=== PATIENT | female | born 2000 | race Caucasian/White ===

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

== ENCOUNTER → 2022-04-18 14:06 | Outpatient (CLI) | payer OTHER, SELFPAY ==
--- NOTE | ~2022-04-18 | XR_ITS ---
Lumbosacral Spine: AP and lateral views Clinical History: Pain Findings: The normal lordotic curve is maintained. The vertebral bodies and posterior elements are i ntact. The intervertebral disc spaces are preserved. The sacroiliac joints are normally outlined. Impression: No significant abnormality. Reviewed, dictated and finalized at location [] APY ADMINISTRATIVE ASSISTANT Impression: No significant abnormality.
--- NOTE | ~2022-04-18 | XR_ITS ---
AP and lateral views of the left femur Clinical History: Pain Findings: No acute fracture or dislocation is seen. Osseous alignment is anatomic. Visualized joint s paces are grossly preserved. Soft tissues are unremarkable. Impression: Unremarkable left femoral radiographs. Reviewed, dictated and finalized at location [] ER HAND Impression: Unremarkable left femoral radiographs.
== END ==
PROVIDERS: PCP Pediatrics; Visit Provider Pediatrics
DX: M54.50 Low back pain, unspecified (principal); M79.605 Pain in left leg
CPT/HCPCS: 72100; 73552

== ENCOUNTER 2022-10-27 14:27 | Emergency (ER) | payer OTHER, SELFPAY ==
[2022-10-27 15:00] VITALS: BP 113/70; PULSE 103; RESP 18; TEMP 36.3; O2SAT 100
--- NOTE | 2022-10-27 15:11 | ED.FEMALEGU ---
HPI - Female Genitourinary General Stated complaint: uti symptoms Time Seen by Provider: 10/27/22 15:12 Source: patient Mode of arrival: ambulatory Limitations: no limitations History of Present Illness HPI Narrative: Patient is a 22-year-old female that has not urinated in 20 hours. Patient states over the last 3 weeks she has had prolonged time starting stream but has never not been able to go. Patient had urine sample sent last week to rule out UTI. Urine was clean. Patient denies any low back pain or fever but is having pelvic pain and abdominal pain due to bladder pressure. MD elicited complaint: dysuria Related Data Home Medications Medication Instructions Recorded Confirmed atomoxetine 80 mg capsule 80 mg PO DAILY 10/27/22 10/27/22 escitalopram oxalate 20 mg tablet 20 mg PO DAILY 10/27/22 10/27/22 olanzapine 2.5 mg tablet 2.5 mg PO DAILY 10/27/22 10/27/22 spironolactone 100 mg tablet 100 mg PO DAILY 10/27/22 10/27/22 Allergies Allergy/AdvReac Type Severity Reaction Status Date / Time No Known Allergies Allergy Verified 10/27/22 15:19 Review of Systems Review of Systems: All systems reviewed & are unremarkable except as noted in HPI and below Constitutional: Constitutional: Denies chills, Denies fever(s), Denies headache(s), Denies malaise and Denies weakness Eyes: Eyes: Denies change in vision, Denies eye discharge and Denies irritation ENT: Denies otalgia, Denies headache(s), Denies nasal congestion, Denies nasal discharge, Denies sinus pain and Denies sore throat Cardiovascular: Cardiovascular: Denies chest pain, Denies edema, Denies palpitations and Denies dyspnea Respiratory: Respiratory: Denies cough and Denies dyspnea Gastrointestinal: Gastrointestinal: Denies abdominal pain, Denies diarrhea, Denies nausea and Denies vomiting Genitourinary: Genitourinary: Denies hematuria, Reports urinary frequency, Denies dysuria, Denies flank pain and Reports other (Urinary retention 420 hours) Musculoskeletal: Musculoskeletal: Denies back pain and Denies numbness Integumentary/Breasts: Skin/Breast: Denies pruritus and Denies rash Neurologic: Denies headache(s), Denies numbness and Denies weakness Psychiatric: Psychiatric: Reports no additional psychiatric complaints Endocrine: Endocrine: Denies palpitations PMFSH Comments At time of signature, agree with nursing past medical, surgical, social and family history. There is no relevant family history pertinent to the presenting complaint. Exam Const: General: cooperative, healthy appearing, comfortable, no acute distress and well nourished Nutritional Appearance: well nourished Orientation/consciousness: patient oriented x3 HENMT: Head: normocephalic and atraumatic Ears: external ears normal Face/Nose/Sinus: Normal external nose present, Normal nares present and normal facial exam Face and sinus: normal facial exam Eyes: General: appearance normal, both eyes and all related structures Pupils: Equal, round and reactive pupils present EOM: EOMs intact bilaterally Neck: Neck: normal visual inspection, full ROM and supple Chest: Chest palpation & inspection: normal inspection of the chest Resp: Effort & Inspection: normal respiratory effort and able to speak in complete sentences Cardio: Rate: regular rate Rhythm: regular rhythm GI: Inspection: normal to inspection and distended GI Palp: Yes abdominal tenderness, Yes Soft to palpation, No Guarding due to palpation present (GI), No Rigid due to palpation, No Hepatomegaly present, No Splenomegaly present, No Palpable mass present, No Ascites present, No Rebound tenderness present and Yes Bladder palpation abnormal (Enlarged) Auscultation: normal bowel sounds Rectal Exam: deferred : General: Yes no CVA tenderness Back/Spine/Pelvis: Back: no CVA tenderness Skin: General skin exam: normal color and no rashes or lesions noted Neuro: General: patient oriented x3 and moves all extremities Crani
== END 2022-10-27 15:28 | disposition short-term general hospital (02) ==
PROVIDERS: Emergency Provider Nurse Practitioner Family; PCP Pediatrics
DX: R33.9 Retention of urine, unspecified (principal); F41.9 Anxiety disorder, unspecified; F32.A Depression, unspecified; F90.9 Attention-deficit hyperactivity disorder, unspecified type
CPT/HCPCS: 99212; G0463

== ENCOUNTER 2022-10-27 15:38 | Emergency (ER) | payer OTHER, SELFPAY ==
[2022-10-27 15:40] VITALS: BP 103/77; PULSE 114; RESP 16; TEMP 36.3; O2SAT 97
--- NOTE | 2022-10-27 17:06 | ED.FEMALEGU ---
HPI - Female Genitourinary General Chief complaint: Urogenital-Female <Isela Del Toro PA-C - Last Filed: 10/27/22 19:32> Stated complaint: no able to urinate for 24 hours <Isela Del Toro PA-C - Last Filed: 10/27/22 19:32> Time Seen by Provider: 10/27/22 16:57 <Isela Del Toro PA-C - Last Filed: 10/27/22 19:32> History of Present Illness HPI Narrative: 22-year-old female here for evaluation of urinary retention x12 hours. Patient states that she was having sensation of incomplete void for the past week. She saw her primary care doctor who ordered a urinalysis that was reportedly normal. She states her symptoms have worsened and over the past 12 hours she has been unable to void any amount. She denies any back pain, saddle anesthesia, constipation, fevers or chills. She has a pressure in her suprapubic region. Denies history of previous sensation. <Isela Del Toro PA-C - Last Filed: 10/27/22 19:32> Related Data Home medications: Home Medications Medication Instructions Recorded Confirmed atomoxetine 80 mg capsule 80 mg PO DAILY 10/27/22 10/27/22 escitalopram oxalate 20 mg tablet 20 mg PO DAILY 10/27/22 10/27/22 olanzapine 2.5 mg tablet 2.5 mg PO DAILY 10/27/22 10/27/22 spironolactone 100 mg tablet 100 mg PO DAILY 10/27/22 10/27/22 <JOSEP Nicholson Last Filed: 10/27/22 19:32> Allergies/Adverse reactions: Allergies Allergy/AdvReac Type Severity Reaction Status Date / Time No Known Allergies Allergy Verified 10/27/22 15:19 <JOSEP Nicholson Last Filed: 10/27/22 19:32> Review of Systems Review of Systems: Gen.: Denies fevers or chills Eyes: Denies eye pain or visual change ENT: Denies congestion Respiratory: Denies shortness of breath or cough CV: Denies chest pain or palpitations GI: Denies abdominal pain nausea, emesis or diarrhea reports urinary retention Musculoskeletal: Denies back pain or muscle pain Neuro: Denies numbness, tingling, weakness or focal weakness Skin: Denies rash Except as documented, all other systems reviewed and negative <Isela Del Toro PA-C - Last Filed: 10/27/22 19:32> Exam Narrative: APPEARANCE: Well appearing, no pain in distress, well-nourished. Head: Normocephalic and atraumatic. EYES: PERRLA/EOMI, conjunctivae clear NOSE: No nasal drainage EARS: External ear normal in appearance THROAT: Oropharynx is clear. Mucous membranes are moist. NECK: Supple. No adenopathy, no masses. RESPIRATORY: Airway patent, respirations nonlabored. Clear to auscultation bilaterally, no rales, rhonchi, wheezing. CARDIOVASCULAR: Regular rate and rhythm without murmurs, rubs, or gallops. : External genitalia is normal in appearance without evidence of prolapse ABDOMINAL: There is suprapubic fullness on palpation. Normoactive bowel sounds. Soft, nontender, nondistended. No rebound tenderness or guarding. MUSCULOSKELETAL: Extremities are warm and well-perfused. Moves all extremities well. No edema. NEURO: Normal speech. No focal neurologic deficits. SKIN: Skin is warm and dry. No rashes. PSYCHIATRIC: Normal affect/mood. <Isela Del Toro PA-C - Last Filed: 10/27/22 19:32> Course Course Emergency Course: Bladder scan revealed 600 cc of urine <Isela Del Toro PA-C - Last Filed: 10/27/22 19:32> PUTTER IN/PA Physician Supervision This is a was performed by both a physician and an APC. I performed all aspects of the MDM as documented w/ the following additions: 22-year-old female presenting with urinary retention. Eventually she was able to void spontaneously. Discharged with urology follow-up.All questions answered. Patient in agreement w/ disposition. <Tarik Mckenna MD - Last Filed: 10/29/22 05:31> Vital Signs Vital signs: Vital Signs Temperature 97.3 F L 10/27/22 15:40 Pulse Rate 114 H 10/27/22 15:40 Respiratory Rate 16 10/27/22 15:40 Blood Pressure
[2022-10-27 17:29] LABS: Appearance Urine Clear (Clear); Bilirubin Urine Negative (Negative); Blood Urine Negative (Negative); Color Urine Yellow (Yellow); Glucose Urine UA Negative (Negative); Ketones Urine Negative (Negative); Leukocyte Esterase Ur Negative LEU/UL (Negative); Nitrate Urine Negative (Negative); Protein Urine Negative (Negative); Specific Grav Ur 1.014 (1.001-1.035); Urobilinogen Urine 0.2 mg/dL (<2.0); pH Urine 5.5 (5.0-9.0)
[2022-10-27 17:35] LABS: Add Urine Microscopic? NO
[2022-10-27 17:54] LABS: Basophils Absolute Auto 0.1 K/mm3 (0.0-0.1); Basophils Percent Auto 0.8 % (0.2-1.2); Eosinophils Absolute Auto 0.4 K/mm3 (0-0.3); Eosinophils Percent Auto 4.1 % (0-4.4); Hematocrit 38.4 % (37.0-47.0); Hemoglobin 12.2 g/dL (12.0-15.0); Immature Granulocyte Absolute 0.04 K/mm3 (0.00-0.031); Immature Granulocyte Percent A 0.4 % (0-0.5); Lymphocytes Absolute Auto 2.26 K/mm3 (0.9-3.2); Lymphocytes Percent Auto 22.9 % (18.3-44.2); Mean Corpuscular HGB Conc 31.8 g/dl (32-36); Mean Corpuscular Hemoglobin 30.4 pg (26-34); Mean Corpuscular Volume 95.8 fl (80-100); Monocytes Absolute Auto 0.7 K/mm3 (0.1-0.6); Monocytes Percent Auto 7.5 % (2.6-8.5); Neutrophils Absolute Auto 6.3 K/mm3 (1.3-6.7); Neutrophils Percent Auto 64.3 % (45.5-73.1); Platelet Count Result 300 k/mm3 (150-375); Red Blood Count 4.01 M/mm3 (4.2-5.4); Red Cell Distribution Width 12.6 % (11.5-14.5); White Blood Count 9.9 K/mm3 (4.5-10.0)
[2022-10-27 18:02] LABS: Anion Gap 6 mmol/L (8-16); Blood Urea Nitrogen 7 mg/dL (7-17); Calcium 9.2 mg/dL (8.4-10.2); Carbon Dioxide 28 mmol/L (22-30); Chloride 105 mmol/L (98-107); Estimated CRCL calculation 111 ml/min; Estimated Glomerular Filt Rate > 60; Glucose 78 mg/dL (65-110); Potassium 3.9 mmol/L (3.4-5.0); Sodium 139 mmol/L (137-145)
== END 2022-10-27 19:08 | disposition home or self-care (01) ==
PROVIDERS: Preventive Medicine Aerospace Medicine; Emergency Provider Physician Assistant; PCP Pediatrics
DX: R33.9 Retention of urine, unspecified (principal)
CPT/HCPCS: 36415; 80048; 81003; 81025; 85025; 99283

== ENCOUNTER 2022-11-01 22:11 | Emergency (ER) | payer OTHER, SELFPAY ==
[2022-11-01 22:16] VITALS: BP 126/68; PULSE 108; RESP 14; TEMP 36.1; O2SAT 99
[2022-11-01 23:35] LABS: Basophils Absolute Auto 0.1 K/mm3 (0.0-0.1); Basophils Percent Auto 0.7 % (0.2-1.2); Eosinophils Absolute Auto 0.5 K/mm3 (0-0.3); Hematocrit 37.5 % (37.0-47.0); Hemoglobin 12.3 g/dL (12.0-15.0); Immature Granulocyte Absolute 0.03 K/mm3 (0.00-0.031); Immature Granulocyte Percent A 0.3 % (0-0.5); Mean Corpuscular HGB Conc 32.8 g/dl (32-36); Mean Corpuscular Hemoglobin 30.8 pg (26-34); Mean Platelet Volume 9.9 fl (7.4-10.4); Monocytes Absolute Auto 0.6 K/mm3 (0.1-0.6); Monocytes Percent Auto 5.9 % (2.6-8.5); Neutrophils Absolute Auto 6.2 K/mm3 (1.3-6.7); Neutrophils Percent Auto 62.1 % (45.5-73.1); Platelet Count Result 337 k/mm3 (150-375); Red Blood Count 3.99 M/mm3 (4.2-5.4); Red Cell Distribution Width 12.3 % (11.5-14.5)
[2022-11-01 23:50] LABS: Anion Gap 10 mmol/L (8-16); Blood Urea Nitrogen 13 mg/dL (7-17); Calcium 9.3 mg/dL (8.4-10.2); Carbon Dioxide 22 mmol/L (22-30); Chloride 107 mmol/L (98-107); Estimated CRCL calculation 111 ml/min; Estimated Glomerular Filt Rate > 60; Glucose 104 mg/dL (65-110); Potassium 3.9 mmol/L (3.4-5.0); Sodium 139 mmol/L (137-145)
[2022-11-02 00:31] LABS: Appearance Urine Clear (Clear); Bilirubin Urine Negative (Negative); Blood Urine Negative (Negative); Color Urine Yellow (Yellow); Glucose Urine UA Negative (Negative); Ketones Urine Trace mg/dL (Negative); Leukocyte Esterase Ur Negative LEU/UL (Negative); Nitrate Urine Negative (Negative); Protein Urine Negative (Negative); Specific Grav Ur 1.022 (1.001-1.035); Urobilinogen Urine 0.2 mg/dL (<2.0)
[2022-11-02 00:52] LABS: Add Urine Microscopic? NO
--- NOTE | 2022-11-02 00:55 | ED.FEMALEGU ---
HPI - Female Genitourinary General Chief complaint: Urogenital-Female Stated complaint: urinary retention Time Seen by Provider: 11/01/22 22:53 History of Present Illness HPI Narrative: Per parent, patient has been having some urinary retention over the course of the last few months, last visit here in the ER was a few days ago and she has also seen a urologist for this who felt that since she was still urinating that no intervention necessary at this time. Today the parent thought the last time the patient had urinated was around noon and she has not gone since. Related Data Home Medications Medication Instructions Recorded Confirmed atomoxetine 80 mg capsule 80 mg PO DAILY 10/27/22 10/27/22 escitalopram oxalate 20 mg tablet 20 mg PO DAILY 10/27/22 10/27/22 olanzapine 2.5 mg tablet 2.5 mg PO DAILY 10/27/22 10/27/22 spironolactone 100 mg tablet 100 mg PO DAILY 10/27/22 10/27/22 Allergies Allergy/AdvReac Type Severity Reaction Status Date / Time No Known Allergies Allergy Verified 10/27/22 15:19 Review of Systems Review of Systems: CONST: No fever. HEENT: No sore throat C/V: No chest pain RESP: No cough GI: No abdominal pain : Urinary retention M/S: No joint pain. SKIN: No rash. NEURO: [No headache or focal numbness or weakness] PSYCH: [No depression] [facility] Past Medical History Medical History (Updated 11/02/22 @ 02:13 by Marianna Hairston MD) Depression IBS (irritable bowel syndrome) Exam Narrative: EXAMINATION OF ORGAN SYSTEMS/BODY AREAS: Constitutional: Vital signs per nursing GENERAL:[No acute distress, non-toxic appearing.] HEAD: Normal with no signs of head trauma. EYES: EOMI, conjunctiva normal ENT: Hearing grossly intact LUNGS: Nonlabored breathing. HEART: [Regular rate and rhythm] ABD: [Soft], nondistended, [nontender to palpation] EXT: Normal range of motion SKIN: [No rashes or lesions.] NEURO: [Alert and oriented x 3. No gross focal sensory or strength deficits.] PSYCH: Normal affect Course Vital Signs Vital signs: Vital Signs Temperature 97.0 F L 11/01/22 22:16 Pulse Rate 108 H 11/01/22 22:16 Respiratory Rate 14 11/01/22 22:16 Blood Pressure 126/68 11/01/22 22:16 Pulse Oximetry 99 11/01/22 22:16 Oxygen Delivery Room Air 11/01/22 22:16 Temperature 97.0 F L 11/01/22 22:16 Pulse Rate 108 H 11/01/22 22:16 Respiratory Rate 14 11/01/22 22:16 Blood Pressure 126/68 11/01/22 22:16 Pulse Oximetry 99 11/01/22 22:16 Oxygen Delivery Room Air 11/01/22 22:16 MDM - Female Genitourinary MDM Narrative Medical decision making narrative: 22-year-old female who has had some chronic retention of urine presenting with sensation that she has not been able to go for multiple hours. Bladder scan here only shows about 200 cc of urine, I did perform bedside ultrasound which confirmed about 300 cc, I did obtain labs to rule out any problems with her kidneys, creatinine here is stable at 0.7, as are the rest of her labs, given this I do not feel any emergent treatment needed at this time. Patient would like to have a straight cath here for comfort, we will give them supplies and follow-up to urology as soon as possible and they are agreeable with this plan. UA does not show any infection. I have low concern for serotonin syndrome at this time given her being very well-appearing here, without any clonus, normal temperature, and no obvious objective signs of retention given low residual volume. Return precautions are discussed. Lab Data 11/01/22 23:28 11/01/22 23:28 Labs: Lab Results 11/01/22 11/02/22 Range/Units 23:28 00:04 WBC 10.0 (4.5-10.0) K/mm3 RBC 3.99 L (4.2-5.4) M/mm3 Hgb 12.3 (12.0-15.0) g/dL Hct 37.5 (37.0-47.0) % MCV 94.0 (80-100) fl MCH 30.8 (26-34) pg MCHC 32.8 (32-36) g/dl RDW 12.3 (11.5-14.5) % Plt Count 337 (150-375) k/mm3 MPV 9.9 (7.4-10.4) fl Immature Gr
== END 2022-11-02 01:22 | disposition home or self-care (01) ==
PROVIDERS: Emergency Provider Emergency Medicine; PCP Pediatrics
DX: R30.0 Dysuria (principal)
CPT/HCPCS: 36415; 80048; 81003; 81025; 85025; 99283

== ENCOUNTER 2023-11-12 12:17 | Emergency (ER) | payer OTHER, SELFPAY ==
[2023-11-12 12:23] VITALS: BP 107/74; PULSE 93; RESP 20; TEMP 36.2; O2SAT 99
--- NOTE | 2023-11-12 13:00 | PC.NURSE ---
pt to desk with mother, stated will speak to psychiatrist and return if needed
== END 2023-11-12 13:45 | disposition left against medical advice (07) ==
LOC: ANHED 13:04
PROVIDERS: PCP Pediatrics
DX: T50.991A Poisoning by other drugs, medicaments and biological substances, accidental (unintentional), initial encounter (principal)
CPT/HCPCS: 99199

== ENCOUNTER 2024-03-03 13:37 | Outpatient (CLI) | payer OTHER, SELFPAY ==
--- NOTE | ~2024-03-03 | CT_ITS ---
EXAMINATION: CT sinus wo con DATE: 03/03/2024 14:02 INDICATION: Chronic sinusitis. TECHNIQUE: Computed tomography (CT) of the paranasal sinuses was performed without intravenous contra st. The dose-length product (DLP) was 338.00 mGy-cm. Iterative reconstruction was used. COMPARISON: None FINDINGS: There is normal development and pneumatization of the paranasal sinuses. The frontal, sphen oid, ethmoid, and maxillary sinuses are clear. The bilateral ostiomeatal complexes are patent. Visual ized soft tissues are unremarkable. Mild leftward bowing of the osseous nasal septum with a small oss eous spur. IMPRESSION: Normal CT sinus findings Reviewed, dictated and finalized at location K. IMPRESSION: Normal CT sinus findings
== END 2024-03-03 13:38 | disposition home or self-care (01) ==
PROVIDERS: PCP Pediatrics; Visit Provider Nurse Practitioner Family
DX: J32.9 Chronic sinusitis, unspecified (principal)
CPT/HCPCS: 70486

== ENCOUNTER 2024-04-10 13:28 | Emergency (ER) | payer OTHER, SELFPAY ==
[2024-04-10 13:36] VITALS: BP 103/75; PULSE 94; RESP 16; TEMP 36.3; O2SAT 100
--- NOTE | 2024-04-10 14:06 | ED_ITS ---
HPI - General Adult General Chief complaint: Upper Respiratory Infection Stated complaint: Fever/Sore Throat/Congestion Source: patient and RN notes reviewed Mode of arrival: ambulatory Limitations: no limitations History of Present Illness HPI narrative: 23-year-old female presented for multiple complaints after returning from [facility] 2 days ago. Patient reports 8 days of abdominal pain, diarrhea, nausea, decreased appetite, nasal congestion, fever of 102 2 days ago, reports tremors at baseline that are now worse. States she feels weak and shaky. She was able to eat [employer] last night but has not eaten today. Denies vomiting, hematochezia or melena. Took Imodium and antihistamine. Mother with similar symptoms who traveled with her. Related Data Home Medications Medication Instructions Recorded Confirmed atomoxetine 80 mg capsule 80 mg PO DAILY 10/27/22 04/10/24 escitalopram oxalate 20 mg tablet 20 mg PO DAILY 10/27/22 04/10/24 olanzapine 2.5 mg tablet 2.5 mg PO DAILY 10/27/22 04/10/24 spironolactone 100 mg tablet 100 mg PO DAILY 10/27/22 04/10/24 ascorbic acid (vitamin C) 500 mg 500 mg PO DAILY 04/10/24 04/10/24 tablet bupropion HCl 300 mg 24 hr tablet, 300 mg PO DAILY 04/10/24 04/10/24 extended release fexofenadine 180 mg tablet 180 mg PO DAILY 04/10/24 04/10/24 lisdexamfetamine 50 mg capsule 50 mg PO DAILY 04/10/24 04/10/24 Allergies Allergy/AdvReac Type Severity Reaction Status Date / Time No Known Allergies Allergy Verified 04/10/24 13:49 Review of Systems Review of Systems: ROS per HPI All systems reviewed & are unremarkable except as noted in HPI and below PMFSH Past Medical History Medical History Depression IBS (irritable bowel syndrome) Comments At time of signature, I have reviewed and agree with nursing past medical, surgical, social and family history unless otherwise noted. Please see nursing chart for further information. There is no relevant family history pertinent to the presenting complaint Exam Narrative: GENERAL: ill-appearing, nontoxic no acute distress. EYES: EOMI. Conjunctivae normal. ENT: Mucous membranes pink and moist. Nasal congestion CHEST: No respiratory distress. Clear to auscultation. HEART: Regular rate and rhythm. No murmur appreciated. Normal peripheral pulses. ABDOMEN: abd soft, nondistended, normal active bowel sounds. Tender abdomen; No guarding, rebound tenderness, asymmetry EXTREMITIES: Normal range of motion. No edema. SKIN: Warm, dry, pale. Capillary refill normal. Normal skin turgor. NEURO: No focal deficits. Alert and oriented x3. PSYCH: Normal affect. Course Course Emergency Course: Patient is aware of diagnosis, understands and agrees to treatment plan. Anticipatory guidance given. Patient agrees to follow-up as directed and is aware of reasons to seek care at the emergency department. Portions of this record may have been created with voice recognition software Level of Care: Express Care Visit Vital Signs Vital signs: Vital Signs Temperature 97.3 F L 04/10/24 13:36 Pulse Rate 94 04/10/24 13:36 Respiratory Rate 16 04/10/24 13:36 Blood Pressure 103/75 04/10/24 13:36 Pulse Oximetry 100 04/10/24 13:36 Temperature 97.3 F L 04/10/24 13:36 Pulse Rate 94 04/10/24 13:36 Respiratory Rate 16 04/10/24 13:36 Blood Pressure 103/75 04/10/24 13:36 Pulse Oximetry 100 04/10/24 13:36 Transfer Transfered to: [place] Transportation: Other (Private vehicle) Transfer rationale: Pt is agreeable to transfer. Requests transfer to [facility] via private vehicle. Risks of transportation reviewed with pt including injury, worsening of condition and . v/u. Mother will be driving pt; Report called to hospital, spoke with Samantha Barton NP, accepting physician. Pt is in stable condition at time of transfer. Advised to remain NPO and go directly to the hospital. Medical Decision Making MDM Narrative Medical decision making narrative: Advised ER transfer for multiple complaints following international travel. Differential Diagnosis Differential Diagnosis: Consider gastroenteritis, GERD, bowel obstruction or perforation, cholecystitis, appendicitis, hernia, mesenteric ischemia, pancreatitis, peritonitis, AAA Vital Signs Vital Signs: Vital Signs Temperature 97.3 F L 04/10/24 13:36 Pulse Rate 94 04/10/24 13:36 Respiratory Rate 16 04/10/24 13:36 Blood Pressure 103/75 04/10/24 13:36 Pulse Oximetry 100 04/10/24 13:36 Temperature 97.3 F L 04/10/24 13:36 Pulse Rate 94 04/10/24 13:36 Respiratory Rate 16 04/10/24 13:36 Blood Pressure 103/75 04/10/24 13:36 Pulse Oximetry 100 04/10/24 13:36 Discharge Plan Discharge Clinical Impression: Traveler's diarrhea Patient Disposition: Acute Care Hospital Condition: Stable Prescriptions: No Action spironolactone 100 mg tablet 100 mg PO DAILY olanzapine 2.5 mg tablet 2.5 mg PO DAILY escitalopram oxalate 20 mg tablet 20 mg PO DAILY atomoxetine 80 mg capsule 80 mg PO DAILY fexofenadine 180 mg tablet 180 mg PO DAILY ascorbic acid (vitamin C) 500 mg tablet 500 mg PO DAILY bupropion HCl 300 mg tablet extended release 24 hr 300 mg PO DAILY lisdexamfetamine 50 mg capsule 50 mg PO DAILY Follow-up/Referrals: Rob Rondon MD [Primary Care Provider] - Time of Disposition: 13:55
== END 2024-04-10 14:10 | disposition short-term general hospital (02) ==
PROVIDERS: Emergency Provider Nurse Practitioner Family; PCP Pediatrics
DX: A09 Infectious gastroenteritis and colitis, unspecified (principal); F32.A Depression, unspecified
CPT/HCPCS: 99212; G0463

== ENCOUNTER 2024-04-10 14:58 | Emergency (ER) | payer OTHER, SELFPAY ==
--- NOTE | ~2024-04-10 | XR_ITS ---
XR chest 2V DATE: 04/10/2024 16:27 INDICATION: Cough and congestion for 5 days TECHNIQUE: PA and lateral chest COMPARISON: None FINDINGS: Normal heart size. No hilar or mediastinal enlargement. No pulmonary infiltrate or consolid ation, pleural effusion or pulmonary vascular congestion or pneumothorax is detected. Included skeletal structures are unremarkable. IMPRESSION: Negative Reviewed, dictated and finalized at location A. PLACEMENT COUNSELOR IMPRESSION: Negative
[2024-04-10 14:59] VITALS: BP 128/90; PULSE 93; RESP 16; TEMP 36.2; O2SAT 98
--- NOTE | 2024-04-10 16:28 | ED.URI ---
HPI - URI/Sore Throat General Chief Complaint: Upper Respiratory Infection Stated Complaint: congestion Time Seen by Provider: 04/10/24 15:23 History of Present Illness HPI Narrative: Patient is a 23-year-old female who presents to the ER with complaints diarrhea, fever, body aches, congestion, intermittent clamminess. She reports she was in [facility] her week and a half. While she was there she started experiencing symptoms, approximately 8 days ago. Patient reports her symptoms started has diarrhea and a fever of 102. Approximately five days ago she developed body aches, congestion, sore throat, and cough. Patient denies any prophylactic treatment prior to travel. She endorses a history of asthma but has not used an inhaler in over 2 years. Patient reports she took Imodium a couple days ago and now has stopped the diarrhea. She reports she is able to keep p.o. intake in without vomiting. Related Data Home Medications Medication Instructions Recorded Confirmed atomoxetine 80 mg capsule 80 mg PO DAILY 10/27/22 04/10/24 escitalopram oxalate 20 mg tablet 20 mg PO DAILY 10/27/22 04/10/24 olanzapine 2.5 mg tablet 2.5 mg PO DAILY 10/27/22 04/10/24 spironolactone 100 mg tablet 100 mg PO DAILY 10/27/22 04/10/24 ascorbic acid (vitamin C) 500 mg 500 mg PO DAILY 04/10/24 04/10/24 tablet bupropion HCl 300 mg 24 hr tablet, 300 mg PO DAILY 04/10/24 04/10/24 extended release fexofenadine 180 mg tablet 180 mg PO DAILY 04/10/24 04/10/24 lisdexamfetamine 50 mg capsule 50 mg PO DAILY 04/10/24 04/10/24 Allergies Allergy/AdvReac Type Severity Reaction Status Date / Time No Known Allergies Allergy Verified 04/10/24 13:49 Review of Systems Review of Systems: All systems reviewed & are unremarkable except as noted in HPI and below PMFSH Past Medical History Medical History Depression IBS (irritable bowel syndrome) Exam Narrative: GENERAL: Mildly ill appearing, well-nourished, non-toxic, in no acute distress. HEAD: Normocephalic, atraumatic. NECK: Supple. No adenopathy, no masses. RESPIRATORY: Airway patent, respirations nonlabored. Clear to auscultation bilaterally, no rales, rhonchi, wheezing. CARDIOVASCULAR: Regular rate and rhythm without murmurs, rubs, or gallops. Peripheral pulses 2+ and equal bilaterally. ABDOMINAL: Soft, nontender, nondistended, no hepatosplenomegaly. Normoactive BS. MUSCULOSKELETAL: Moves all extremities. Strength/ROM intact without gross deformities. SKIN: Warm, dry, normal color. No rashes. NEURO: A&O X3. Speech clear. Cranial nerves II-XII grossly intact. Steady gait. No ataxic movements. PSYCHIATRIC: Appropriate mood and affect. Normal interaction. Course Vital Signs Vital signs: Vital Signs Temperature 36.2 C L 04/10/24 14:59 Pulse Rate 93 04/10/24 14:59 Respiratory Rate 16 04/10/24 14:59 Blood Pressure 128/90 04/10/24 14:59 Pulse Oximetry 98 04/10/24 14:59 Temperature 36.4 C 04/10/24 19:06 Pulse Rate 90 04/10/24 19:06 Respiratory Rate 18 04/10/24 19:06 Blood Pressure 98/53 L 04/10/24 19:06 Pulse Oximetry 100 04/10/24 19:06 Oxygen Delivery Room Air 04/10/24 16:47 MDM - URI/Sore Throat MDM Narrative Medical decision making narrative: Patient is a 23-year-old female who presents to the ER with complaints diarrhea, fever, body aches, congestion, intermittent clamminess. She reports she was in [facility] her week and a half. While she was there she started experiencing symptoms, approximately 8 days ago. Patient reports her symptoms started has diarrhea and a fever of 102. Approximately five days ago she developed body aches, congestion, sore throat, and cough. Patient denies any prophylactic treatment prior to travel. She endorses a history of asthma but has not used an inhaler in over 2 years. Patient reports she took Imodium a couple days ago and now has stopped the diarrhea. She reports she is able to keep p.o. intake in without vomiting. Labs Ordered: urinalysis, COVID, CBC, CMP, malaria smear Imaging Ordered: chest x-ray Results: Patient's CBC, CMP and urinalysis were all unremarkable. Her COVID/influenza/RSV results were negative. Patient's chest x-ray indicatesNormal heart size. No hilar or mediastinal enlargement. No pulmonary infiltrate or consolidation, pleural effusion or pulmonary vascular congestion or pneumothorax is detected. Included skeletal structures are unremarkable. Diagnosis: URI Patient Education/Shared MDM: Results shared with patient. Malaria smears are a send out lab so those results cannot be back today. Patient will be a discharge had him with strict instructions to return to the ER with signs/symptoms of dehydration, increasing fever, shortness of breath. She should follow up closely with primary care provider. Patient verbalizes understanding and is in agreement with plan. 2015- Patient is in agreement with current treatment plan. All questions answered. Vital signs stable at time of discharge. Differential Diagnosis Differential diagnosis: Likely upper respiratory infection, viral infection, bronchitis, influenza and other (malaria, dengue) Lab Data Attestation: I reviewed the patient's lab results. 04/10/24 16:51 04/10/24 16:51 Labs: Lab Results 04/10/24 04/10/24 Range/Units 16:51 18:57 WBC 10.3 H (4.5-10.0) K/mm3 RBC 4.17 L (4.2-5.4) M/mm3 Hgb 13.2 (12.0-15.0) g/dL Hct 40.1 (37.0-47.0) % MCV 96.2 (80-100) fl MCH 31.7 (26-34) pg MCHC 32.9 (32-36) g/dl RDW 13.5 (11.5-14.5) % Plt Count 337 (150-375) k/mm3 MPV 10.0 (7.4-10.4) fl Immature Gran % (Auto) 0.3 (0-0.5) % Neut % (Auto) 65.5 (45.5-73.1) % Lymph % (Auto) 22.5 (18.3-44.2) % [place] % (Auto) 8.9 H (2.6-8.5) % Eos % (Auto) 2.3 (0-4.4) % Baso % (Auto) 0.5 (0.2-1.2) % Lymph # (Auto) 2.31 (0.9-3.2) K/mm3 [place] # (Auto) 0.9 H (0.1-0.6) K/mm3 Eos # (Auto) 0.2 (0-0.3) K/mm3 Baso # (Auto) 0.1 (0.0-0.1) K/mm3 Abs Immat Gran (auto) 0.03 (0.00-0.031) K/mm3 Absolute Neuts (auto) 6.7 (1.3-6.7) K/mm3 Absolute Nucleated RBC 0.000 (0.0-0.012) K/mm3 Nucleated RBC % 0.0 (0.0-0.2) % Sodium 140 (137-145) mmol/L Potassium 3.5 (3.4-5.0) mmol/L Chloride 103 (98-107) mmol/L Carbon Dioxide 28 (22-30) mmol/L Anion Gap 9 (4-12) mmol/L BUN 8 D (7-17) mg/dL Creatinine 0.90 (0.7-1.0) mg/dL Estim Creat Clear Calc 88 ml/min Estimated GFR > 60 (59 - ) Glucose 97 (65-110) mg/dL Calcium 9.8 (8.4-10.2) mg/dL Total Bilirubin 0.5 (0.2-1.3) mg/dL AST 25 (14-36) U/L ALT 17 (6-35) U/L Alkaline Phosphatase 73 (38-126) U/L Total Protein 8.0 (6.3-8.2) g/dL Albumin 4.6 (3.5-5.1) g/dL Urine Color Yellow (Yellow) Urine Appearance Clear (Clear) Urine pH 7.5 (5.0-9.0) Ur Specific [place] 1.005 (1.001-1.035) Urine Protein Negative (Negative) mg/dL Urine Glucose (UA) Negative (Negative) mg/dL Urine Ketones Negative (Negative) mg/dL Ur Blood (Man) 1+ H (Negative) Urine Nitrate Negative (Negative) Urine Bilirubin Negative (Negative) Urine Urobilinogen 0.2 (<2.0) mg/dL Leukocyte Esterase Rfl Trace H (Negative) KEEGAN/UL Urine RBC 0-2 (0-2) /hpf Urine WBC 0-5 (0-3) /hpf Ur Squamous Epith Cells None seen (Few) /hpf Urine Bacteria None seen /hpf Urine Casts 0-2 Influenza A (RT-PCR) Negative (Negative) Influenza B (RT-PCR) Negative (Negative) RSV (RT-PCR) Negative (Negative) SARS-CoV-2 RNA (RT-PCR) Negative (Negative) Imaging Data Attestation: I personally reviewed and interpreted this imaging study as follows: Radiologist's impression: Impressions Chest X-Ray 04/10/24 16:28 IMPRESSION: Negative Discharge Plan Discharge Clinical Impression: Upper respiratory infection, Viral infection Patient Disposition: Home, Self-Care Condition: Stable Instructions: Antibiotic Form, Upper Respiratory Infection (ED), Viral Syndrome (ED) Additional Instructions: Please return to the ER with an worsening symptoms. Follow-up with primary care provider in the next 2-3 days. Take all medications as prescribed. Prescriptions: No Action spironolactone 100 mg tablet 100 mg PO DAILY olanzapine 2.5 mg tablet 2.5 mg PO DAILY escitalopram oxalate 20 mg tablet 20 mg PO DAILY atomoxetine 80 mg capsule 80 mg PO DAILY fexofenadine 180 mg tablet 180 mg PO DAILY ascorbic acid (vitamin C) 500 mg tablet 500 mg PO DAILY bupropion HCl 300 mg tablet extended release 24 hr 300 mg PO DAILY lisdexamfetamine 50 mg capsule 50 mg PO DAILY Follow-up/Referrals: Rob Rondon MD [Primary Care Provider] -
[2024-04-10] MEDS: SODIUM CHLORIDE 0.9% IV 1,000 ML 999 ML IV CONT (16:48)
[2024-04-10] MEDS: KETOROLAC 15 MG/ML VIAL (*BKC) IV PUSH (16:49)
[2024-04-10 16:58] LABS: Basophils Absolute Auto 0.1 K/mm3 (0.0-0.1); Basophils Percent Auto 0.5 % (0.2-1.2); Eosinophils Absolute Auto 0.2 K/mm3 (0-0.3); Eosinophils Percent Auto 2.3 % (0-4.4); Hematocrit 40.1 % (37.0-47.0); Hemoglobin 13.2 g/dL (12.0-15.0); Immature Granulocyte Absolute 0.03 K/mm3 (0.00-0.031); Immature Granulocyte Percent A 0.3 % (0-0.5); Lymphocytes Absolute Auto 2.31 K/mm3 (0.9-3.2); Lymphocytes Percent Auto 22.5 % (18.3-44.2); Mean Corpuscular HGB Conc 32.9 g/dl (32-36); Mean Corpuscular Hemoglobin 31.7 pg (26-34); Mean Corpuscular Volume 96.2 fl (80-100); Monocytes Absolute Auto 0.9 K/mm3 (0.1-0.6); Monocytes Percent Auto 8.9 % (2.6-8.5); Neutrophils Absolute Auto 6.7 K/mm3 (1.3-6.7); Neutrophils Percent Auto 65.5 % (45.5-73.1); Platelet Count Result 337 k/mm3 (150-375); Red Blood Count 4.17 M/mm3 (4.2-5.4); Red Cell Distribution Width 13.5 % (11.5-14.5); White Blood Count 10.3 K/mm3 (4.5-10.0)
[2024-04-10 17:08] LABS: Alanine Aminotransferase 17 U/L (6-35); Albumin Level 4.6 g/dL (3.5-5.1); Alkaline Phosphatase 73 U/L (38-126); Anion Gap 9 mmol/L (4-12); Aspartate Amino Transferase 25 U/L (14-36); Bilirubin,Total 0.5 mg/dL (0.2-1.3); Blood Urea Nitrogen 8 mg/dL (7-17); Calcium 9.8 mg/dL (8.4-10.2); Carbon Dioxide 28 mmol/L (22-30); Chloride 103 mmol/L (98-107); Estimated CRCL calculation 88 ml/min; Estimated Glomerular Filt Rate > 60; Glucose 97 mg/dL (65-110); Potassium 3.5 mmol/L (3.4-5.0); Sodium 140 mmol/L (137-145)
[2024-04-10 17:32] LABS: Influenza A QL RT-PCR Negative (Negative); Influenza B QL RT-PCR Negative (Negative); RSV RNA, RT-PCR Negative (Negative); SARS-CoV-2 RNA PCR Negative (Negative)
[2024-04-10 19:06] VITALS: BP 98/53; PULSE 90; RESP 18; TEMP 36.4; O2SAT 100
[2024-04-10 19:12] LABS: Add Urine Microscopic? YES; Appearance Urine Clear (Clear); Bacteria Urine None Seen /hpf; Bilirubin Urine Negative (Negative); Blood Urine 1+ (Negative); Color Urine Yellow (Yellow); Glucose Urine UA Negative (Negative); Ketones Urine Negative (Negative); Leukocyte Esterase Ur Trace LEU/UL (Negative); Nitrate Urine Negative (Negative); Non Pathogenic Casts 0-2; Protein Urine Negative (Negative); RBC Urine 0-2 /hpf (0-2); Specific Grav Ur 1.005 (1.001-1.035); Squamous Epithelial Cell Urine None Seen /hpf (Few); Urobilinogen Urine 0.2 mg/dL (<2.0); WBC Urine 0-5 /hpf (0-3); pH Urine 7.5 (5.0-9.0)
--- NOTE | 2024-04-10 19:20 | PC.NURSE ---
Report received from [facility] Perrin. Assumed care of patient at this time.
== END 2024-04-10 20:35 | disposition home or self-care (01) ==
PROVIDERS: Emergency Provider Registered Nurse; PCP Pediatrics
DX: B34.9 Viral infection, unspecified (principal); J06.9 Acute upper respiratory infection, unspecified; Z20.822 Contact with and (suspected) exposure to COVID-19; K58.9 Irritable bowel syndrome, unspecified; F32.A Depression, unspecified; Z79.899 Other long term (current) drug therapy
CPT/HCPCS: 36415; 71046; 80053; 81001; 85025; 87637; 96361; 96374; 99284; J1885; J7030